=== PATIENT | male | born 1980 | race African-American/Black ===

== ENCOUNTER 2017-05-08 09:19 | Emergency (ER) | payer SELFPAY ==
[~2017-05-08] VITALS: Ht 180.3 cm; Wt 95.0 kg
[2017-05-08 09:37] VITALS: BP 137/80; PULSE 63; RESP 18; TEMP 98.8; O2SAT 99
--- NOTE | 2017-05-08 09:50 | PD ---
HPI Chief Complaint: Chest Pain Time Seen by Provider: 09:34 Travel History International Travel<30 days: No Contact w/Intl Traveler<30days: No Traveled to known affect area: No History of Present Illness HPI This patient complains of chest pain. Duration is one week. Symptoms come and go. He has a right lower chest pain. Feels like a bubble in there. No sharp stabbing quality to it. A deep breath can make it worse. Severity is moderate. No injury. No fever. No alleviating factors. It is not exertional PFSH Past Medical History Medical History: Denies Significant Hx Past Surgical History Surgical History: No Previous Surgery Social History Alcohol Use: No (SOCIALLY) Tobacco Use: Yes (1 PK EVERY 2 DAYS) Substance Use: No (MARIJUANA HX) Allergies-Medications (Allergen,Severity, Reaction): Coded Allergies: No Known Allergies (Verified , 12/31/15) Reported Meds & Prescriptions Reported Meds & Active Scripts Active No Active Prescriptions or Reported Medications Review of Systems General / Constitutional: No: Fever Eyes: No: Visual changes HENT: No: Headaches Cardiovascular: Positive: Chest Pain or Discomfort Respiratory: No: Shortness of Breath Gastrointestinal: No: Abdominal Pain Genitourinary: No: Dysuria Musculoskeletal: No: Pain Skin: No Rash Neurologic: No: Weakness Psychiatric: No: Depression Endocrine: No: Polydipsia Hematologic/Lymphatic: No: Easy Bruising Physical Exam Narrative GENERAL: Well-nourished, well-developed patient in no apparent distress. SKIN: Focused skin assessment reveals no rash and nodules. Skin is Warm and dry. HEAD: Atraumatic. Normocephalic. EYES: Pupils equal and round. No scleral icterus. No injection or drainage. ENT: No nasal bleeding or discharge. Mucous membranes pink and moist. NECK: Trachea midline. No JVD. CARDIOVASCULAR: Regular rate and rhythm. No murmur appreciated. RESPIRATORY: No accessory muscle use. Clear to auscultation. Breath sounds equal bilaterally. GASTROINTESTINAL: Abdomen soft, non-tender, nondistended. Hepatic and splenic margins not palpable. MUSCULOSKELETAL: No obvious deformities. No clubbing. No cyanosis. No edema. NEUROLOGICAL: Awake and alert. No obvious cranial nerve deficits. Motor grossly within normal limits. Normal speech. PSYCHIATRIC: Appropriate mood and affect; insight and judgment normal. Data Data Last Documented VS Vital Signs Date Time Temp Pulse Resp B/P (MAP) Pulse Ox O2 Delivery O2 Flow Rate FiO2 05/08/17 09:37 98.8 63 18 137/80 (99) 99 Orders Orders Electrocardiogram (05/08/17 09:47) Basic Metabolic Panel (Bmp) (05/08/17 09:47) Ckmb (Isoenzyme) Profile (05/08/17 09:47) Complete Blood Count With Diff (05/08/17 09:47) D-Dimer (05/08/17 09:47) Prothrombin Time / Inr (Pt) (05/08/17 09:47) Act Partial Throm Time (Ptt) (05/08/17 09:47) Troponin I (05/08/17 09:47) Chest, Single Ap (05/08/17 09:47) Ecg Monitoring (05/08/17 09:47) Iv Access Insert/Monitor (05/08/17 09:47) Oximetry (05/08/17 09:47) Sodium Chloride 0.9% Flush (Ns Flush) (05/08/17 10:00) CKMB (05/08/17 10:00) CKMB% (05/08/17 10:00) Labs Laboratory Tests Test 05/08/17 10:00 White Blood Count 8.0 TH/MM3 Red Blood Count 4.42 MIL/MM3 Hemoglobin 13.4 GM/DL Hematocrit 39.7 % Mean Corpuscular Volume 89.7 FL Mean Corpuscular Hemoglobin 30.3 PG Mean Corpuscular Hemoglobin Concent 33.8 % Red Cell Distribution Width 13.0 % Platelet Count 267 TH/MM3 Mean Platelet Volume 8.1 FL Neutrophils (%) (Auto) 47.1 % Lymphocytes (%) (Auto) 40.5 % Monocytes (%) (Auto) 8.8 % Eosinophils (%) (Auto) 3.1 % Basophils (%) (Auto) 0.5 % Neutrophils # (Auto) 3.8 TH/MM3 Lymphocytes # (Auto) 3.2 TH/MM3 Monocytes # (Auto) 0.7 TH/MM3 Eosinophils # (Auto) 0.2 TH/MM3 Basophils # (Auto) 0.0 TH/MM3 CBC Comment DIFF FINAL Differential Comment Prothrombin Time 10.5 SEC Prothromb Time International Ratio 1.0 RATIO Activated Partial Thromboplast Time 28.5 SEC D-Dimer Quantitative (PE/DVT) 0.24 MG/L FEU Blood Urea Nitrogen 12 MG/DL Creatinine 0.82 MG/DL Random Glucose 89 MG/DL Calcium Level 8.4 MG/DL Sodium Level 139 MEQ/L Potassium Level 3.8 MEQ/L Chloride Level 105 MEQ/L Carbon Dioxide Level 26.8 MEQ/L Anion Gap 7 MEQ/L Estimat Glomerular Filtration Rate 130 ML/MIN Total Creatine Kinase 478 U/L Creatine Kinase MB 3.1 NG/ML Creatine Kinase MB % 0.6 % Troponin I LESS THAN 0.02 NG/ML MDM Medical Decision Making Medical Screen Exam Complete: Yes Emergency Medical Condition: Yes Medical Record Reviewed: Yes Differential Diagnosis Differential diagnosis includes IN, angina, pericarditis, pleurisy, GERD, anxiety. Narrative Course I have reviewed the patient's electronic medical record. He's been here several times in the past. Has had cocaine use prior Currently denies any drug use IV placed I reviewed the EKG which shows sinus rhythm without ST elevation or ectopy I reviewed the chest x-ray which is normal Extended cardiac monitoring shows sinus rhythm without ectopy All his labs are essentially normal including cardiac enzymes and general blood counts. D-dimer is less than 0.5 in this low risk patient ruling out PE On recheck at noon he is sound asleep. His pain is improved; stable for outpatient follow-up Diagnosis Primary Impression: Anterior chest wall pain Additional Instructions: The patient was advised to follow up with their physician and return if they worsen. Med/Other Pt SpecificInfo: Other Scripts No Active Prescriptions or Reported Meds Disposition: 01 DISCHARGE HOME Condition: Stable Sg Blackmon MD May 08, 2017 09:50
[2017-05-08] MEDS ORDERED: SODIUM CHLORIDE 0.9% FLUSH 10 ML FLUSH IVF PRN (10:00)
--- NOTE | 2017-05-08 10:04 | RADRPT ---
EXAM DATE/TIME: 05/08/2017 09:52 [facility] COMPARISON: CHEST SINGLE AP, December 31, 2015, 14:05. INDICATIONS : Chest pain. MEDICAL HISTORY : None. SURGICAL HISTORY : None. ENCOUNTER: Initial ACUITY: 1 day PAIN SCORE: 5/10 LOCATION: Right upper chest FINDINGS: A single view of the chest demonstrates the lungs to be symmetrically aerated without evidence of mas s, infiltrate or effusion. The cardiomediastinal contours are unremarkable. Osseous structures are intact. CONCLUSION: No acute disease. No significant change has occurred. Ishmael Jasmine MD on May 08, 2017 at 10:02 Board Certified Radiologist. This report was verified electronically.
[2017-05-08 10:33] LABS: AUTOMATED NEUTROPHIL # 3.8 TH/MM3 (1.8-7.7); BASOPHIL % 0.5 % (0.0-2.0); EOSINOPHIL # 0.2 TH/MM3 (0-0.4); EOSINOPHIL % 3.1 % (0.0-4.0); HEMATOCRIT 39.7 % (39.0-51.0); HEMOGLOBIN 13.4 GM/DL (13.0-17.0); LYMPH % 40.5 % (9.0-44.0); LYMPHOCYTE # 3.2 TH/MM3 (1.0-4.8); MEAN CELL VOLUME 89.7 FL (80.0-100.0); MEAN CORPUSCULAR HEMOGLOBIN 30.3 PG (27.0-34.0); MEAN CORPUSCULAR HGB CONC 33.8 % (32.0-36.0); MEAN PLATELET VOLUME 8.1 FL (7.0-11.0); MONO % 8.8 % (0.0-8.0); MONOCYTE # 0.7 TH/MM3 (0-0.9); NEUT % 47.1 % (16.0-70.0); PLATELET COUNT 267 TH/MM3 (150-450); RED BLOOD COUNT 4.42 MIL/MM3 (4.50-5.90)
[2017-05-08 10:45] LABS: PROTHROMBIN TIME - PATIENT 10.5 SEC (9.8-11.6)
[2017-05-08 10:55] LABS: BICARBONATE 26.8 MEQ/L (21.0-32.0); BLOOD UREA NITROGEN 12 MG/DL (7-18); CALCIUM 8.4 MG/DL (8.5-10.1); CHLORIDE 105 MEQ/L (98-107); CREATININE 0.82 MG/DL (0.60-1.30); GLOMERULAR FILTRATION RATE 130 ML/MIN (>89); GLUCOSE,RANDOM 89 MG/DL (74-106); SODIUM (NA) 139 MEQ/L (136-145)
[2017-05-08 10:59] LABS: TROPONIN I LESS THAN 0.02 NG/ML (0.02-0.05)
[2017-05-08 11:29] LABS: D-DIMER 0.24 MG/L FEU (0.00-0.50)
--- NOTE | 2017-05-08 14:44 | EKG ---
Date Performed: 05/08/2017 Time Performed: 10:10:07 PTAGE: 37 years EKG: SINUS BRADYCARDIA POSSIBLE RIGHT VENTRICULAR CONDUCTION DELAY BORDERLINE ECG PREVIOUS TRACING : 12/31/2015 14.05 Since the prior tracing, there has been no significant edwards DOCTOR: Camden Mckinley Interpretating Date/Time 05/08/2017 14:37:23
== END 2017-05-08 12:26 | disposition home or self-care (01) ==
LOC: NEPD 09:19
DX: R07.89 Other chest pain (principal); R00.1 Bradycardia, unspecified; F17.210 Nicotine dependence, cigarettes, uncomplicated
CPT/HCPCS: 71045; 80048; 82550; 82552; 84484; 85025; 85379; 85610; 85730; 93005